=== PATIENT | female | born 1980 | race Asian ===

== ENCOUNTER 2017-09-14 18:05 | Emergency (ER) | payer SELFPAY ==
[~2017-09-14] VITALS: Ht 162.6 cm; Wt 63.6 kg
[2017-09-14] MEDS ORDERED: MORPHINE SULFATE 4 MG/ML SYRINGE IVP ONE (18:45)
[2017-09-14] MEDS ORDERED: ONDANSETRON HCL 4 MG/2 ML VIAL IVP ONE (18:45)
[2017-09-14] MEDS ORDERED: MIDAZOLAM HCL 5 MG/ML VIAL IVP ONE (20:30)
[2017-09-14] MEDS ORDERED: FentaNYL CITRATE-PF 100 MCG/2 ML VIAL IVP ONE (20:30)
[2017-09-14 21:43] VITALS: BP 145/89
== END 2017-09-14 21:51 | disposition home or self-care (01) ==
LOC: EMS 18:07
DX: S43.004A Unspecified dislocation of right shoulder joint, initial encounter (principal); W10.9XXA Fall (on) (from) unspecified stairs and steps, initial encounter; Y93.89 Activity, other specified; Y92.89 Other specified places as the place of occurrence of the external cause; Y99.8 Other external cause status
CPT/HCPCS: 23650; 73030; 96374; 96375; 99284; J2270; J2405; J2250; J3010